=== PATIENT | female | born 1930 | race Caucasian/White ===

== ENCOUNTER 2017-11-06 22:50 | Emergency (ER) | payer MEDICARE, OTHER ==
[2017-11-06 23:01] VITALS: BP 144/70; PULSE 68; RESP 20; TEMP 99.2; O2SAT 91
--- NOTE | 2017-11-06 23:12 | PD ---
HPI Chief Complaint: COUGH Time Seen by Provider: 23:03 Travel History International Travel<30 days: No Contact w/Intl Traveler<30days: No Traveled to known affect area: No History of Present Illness HPI Patient comes in complaining of cough dry, generalized weakness, malaise, subjective fevers at home. Patient was diagnosed with flu and placed on Tamiflu this was around early October. Since then she could continue to have the same symptoms and although she has an appointment tomorrow for her primary care the family was concerned that she may be developing a pneumonia or worse another pulmonary embolus. Patient has already a previous history of pulmonary embolus and placed on Eliquis. Past medical history significant for hypertension diabetes hyperlipidemia PE PFSH Social History Tobacco Use: No Allergies-Medications (Allergen,Severity, Reaction): Coded Allergies: iodine (Unverified Adverse Reaction, Severe, Swelling, 11/06/17) Reported Meds & Prescriptions Reported Meds & Active Scripts Active Cipro (Ciprofloxacin HCl) 500 Mg Tab 500 Mg PO BID 7 Days Medrol Dosepak (Methylprednisolone) 4 Mg Dspk 4 Mg PO DIRECTED Per Pharmacist direction Proventil Hfa 6.7 GM Inh (Albuterol Sulfate) 90 Mcg/Act Aer 2 Puff INH Q4-6H PRN Reported Anoro Ellipta Inh (Umeclidinium/Vilanterol) 62.5-25 Mcg/Act Aero 1 Puff INH DAILY Tramadol (Tramadol HCl) 50 Mg Tab 50 Mg PO BID PRN Sennosides 8.6 Mg Tab 8.6 Mg PO BID Prednisone 5 Mg Tab 5 Mg PO DAILY Pravastatin 20 Mg Tab 20 Mg PO DAILY Pantoprazole (Pantoprazole Sodium) 40 Mg Tab 40 Mg PO DAILY Metoprolol Tartrate 50 Mg Tab 50 Mg PO BID Methotrexate 2.5 Mg Tab 2.5 Mg PO Q7D Glipizide 5 Mg Tab 5 Mg PO DAILY Take 30 minutes before a meal Fluticasone-Salmeterol Inh 232-14 Mcg Inh 1 Puff INH BID Diclo Gel Topical (Diclofenac Sodium) 1% Gel 1 Applic TOPICAL QID Coenzyme Q-10 (Ubidecarenone) 50 Mg Capsule 100 Vitamin D3 (Cholecalciferol) 3,000 Unit Tab 3,000 Units PO DAILY Eliquis (Apixaban) 5 Mg Tab 5 Mg PO BID Amlodipine (Amlodipine Besylate) 5 Mg Tab 5 Mg PO DAILY Review of Systems General / Constitutional: Positive: Fever Eyes: No: Visual changes HENT: No: Headaches Cardiovascular: No: Chest Pain or Discomfort Respiratory: Positive: Cough, Shortness of Breath Gastrointestinal: No: Abdominal Pain Genitourinary: No: Dysuria Musculoskeletal: No: Pain Skin: No Rash Neurologic: No: Weakness Psychiatric: No: Depression Endocrine: No: Polydipsia Hematologic/Lymphatic: No: Easy Bruising Physical Exam Narrative GENERAL: SKIN: Warm and dry. HEAD: Atraumatic. Normocephalic. EYES: Pupils equal and round. No scleral icterus. No injection or drainage. ENT: No nasal bleeding or discharge. Mucous membranes pink and moist. NECK: Trachea midline. No JVD. CARDIOVASCULAR: Regular rate and rhythm. RESPIRATORY: No accessory muscle use. Breath sounds equal bilaterally. Bilateral rhonchi mild wheezing but with good tidal volume GASTROINTESTINAL: Abdomen soft, non-tender, nondistended. Hepatic and splenic margins not palpable. MUSCULOSKELETAL: Extremities without clubbing, cyanosis, or edema. No obvious deformities. NEUROLOGICAL: Awake and alert. No obvious cranial nerve deficits. Motor grossly within normal limits. Five out of 5 muscle strength in the arms and legs. Normal speech. PSYCHIATRIC: Appropriate mood and affect; insight and judgment normal. Data Data Last Documented VS Vital Signs Date Time Temp Pulse Resp B/P (MAP) Pulse Ox O2 Delivery O2 Flow Rate FiO2 11/07/17 01:21 11/07/17 01:05 63 18 97 Nasal Cannula 2.00 11/06/17 23:01 99.2 Orders Orders Electrocardiogram (11/06/17 23:12) Complete Blood Count With Diff (11/06/17 23:12) Comprehensive Metabolic Panel (11/06/17 23:12) Ckmb (Isoenzyme) Profile (11/06/17 23:12) Troponin I (11/06/17 23:12) B-Type Natriuretic Peptide (11/06/17 23:12) Prothrombin Time / Inr (Pt) (11/06/17 23:12) Act Partial Throm Time (Ptt) (11/06/17 23:12) Arterial Blood Gas (Abg) (11/06/17 23:12) Blood Culture (11/06/17 23:12) Lipase (11/06/17 23:12) Urinalysis - C+S If Indicated (11/06/17 23:12) Cath For Specimen (11/06/17 23:12) Thyroid Stimulating Hormone (11/06/17 23:12) Influenzae A/B Antigen (11/06/17 23:12) Chest, Single Ap (11/06/17 23:12) Iv Access Insert/Monitor (11/06/17 23:12) Ecg Monitoring (11/06/17 23:12) Oximetry (11/06/17 23:12) Lactic Acid Sepsis Protocol (11/06/17 23:12) Levofloxacin 500 Mg Premix Inj (Levaquin (11/07/17 00:15) Ed Discharge Order (11/07/17 00:49) Labs Laboratory Tests Test 11/06/17 23:15 11/06/17 23:28 11/06/17 23:45 White Blood Count 7.3 TH/MM3 Red Blood Count 4.01 MIL/MM3 Hemoglobin 12.9 GM/DL Hematocrit 38.1 % Mean Corpuscular Volume 95.2 FL Mean Corpuscular Hemoglobin 32.3 PG Mean Corpuscular Hemoglobin Concent 33.9 % Red Cell Distribution Width 17.6 % Platelet Count 181 TH/MM3 Mean Platelet Volume 7.6 FL Neutrophils (%) (Auto) 59.2 % Lymphocytes (%) (Auto) 20.7 % Monocytes (%) (Auto) 18.6 % Eosinophils (%) (Auto) 1.0 % Basophils (%) (Auto) 0.5 % Neutrophils # (Auto) 4.3 TH/MM3 Lymphocytes # (Auto) 1.5 TH/MM3 Monocytes # (Auto) 1.4 TH/MM3 Eosinophils # (Auto) 0.1 TH/MM3 Basophils # (Auto) 0.0 TH/MM3 CBC Comment DIFF FINAL Differential Comment Prothrombin Time 11.8 SEC Prothromb Time International Ratio 1.2 RATIO Activated Partial Thromboplast Time 29.1 SEC Blood Urea Nitrogen 16 MG/DL Creatinine 1.10 MG/DL Random Glucose 113 MG/DL Total Protein 6.3 GM/DL Albumin 3.2 GM/DL Calcium Level 8.9 MG/DL Alkaline Phosphatase 54 U/L Aspartate Amino Transf (AST/SGOT) 20 U/L Alanine Aminotransferase (ALT/SGPT) 21 U/L Total Bilirubin 0.4 MG/DL Sodium Level 135 MEQ/L Potassium Level 3.8 MEQ/L Chloride Level 99 MEQ/L Carbon Dioxide Level 27.2 MEQ/L Anion Gap 9 MEQ/L Estimat Glomerular Filtration Rate 47 ML/MIN Lactic Acid Level 1.0 mmol/L Total Creatine Kinase 22 U/L Troponin I LESS THAN 0.02 NG/ML B-Type Natriuretic Peptide 34 PG/ML Lipase 68 U/L Thyroid Stimulating Hormone 3rd Gen 0.851 uIU/ML Blood Gas Puncture Site RT BRACHIAL Blood Gas Patient Temperature 98.6 Blood Gas HCO3 24 mmol/L Blood Gas Base Excess 0.8 mmol/L Blood Gas Oxygen Saturation 95 % Arterial Blood pH 7.45 Arterial Blood Partial Pressure CO2 36 mmHg Arterial Blood Partial Pressure O2 87 mmHG Arterial Blood Oxygen Content 16.3 Vol % Arterial Blood Carboxyhemoglobin 0.9 % Arterial Blood Methemoglobin 1.0 % Blood Gas Hemoglobin 12.2 G/DL Oxygen Delivery Device NASAL CANNULA Blood Gas Liter Flow 3 L/M Urine Color YELLOW Urine Turbidity CLEAR Urine pH 5.5 Urine Specific Huger 1.022 Urine Protein NEG mg/dL Urine Glucose (UA) NEG mg/dL Urine Ketones NEG mg/dL Urine Occult Blood NEG Urine Nitrite NEG Urine Bilirubin NEG Urine Urobilinogen LESS THAN 2.0 MG/DL Urine Leukocyte Esterase NEG Urine RBC LESS THAN 1 /hpf Urine WBC 1 /hpf Urine Squamous Epithelial Cells 1 /hpf Urine Hyaline Casts 1 /lpf Microscopic Urinalysis Comment CULT NOT INDICATED MDM Medical Decision Making Medical Screen Exam Complete: Yes Emergency Medical Condition: Yes Medical Record Reviewed: Yes Differential Diagnosis PNA V PLEURAL EFFUSION V PULM EDEMA V STEMI Narrative Course Patient CBC shows no evidence of any leukocytosis and anemia or thrombocytopenia there is also no shift. Coagulation profile is within normal limits. UA shows no evidence of UTI. Chemistry shows a normal TSH, negative troponin, normal beta natruretic peptide, normal BUN and creatinine normal electrolytes normal glucose Diagnosis Primary Impression: Early pneumonia with bronchospasm Patient Instructions: Bronchospasm (ED), Community Acquired Pneumonia (ED), General Instructions Scripts Ciprofloxacin (Cipro) 500 Mg Tab 500 MG PO BID for Infection for 7 Days, #14 TAB 0 Refills Prov: Reji Gonzalez MD 11/07/17 Methylprednisolone Dosepak (Medrol Dosepak) 4 Mg Dspk 4 MG PO DIRECTED, #1 DSPK 0 Refills Per Pharmacist direction Prov: Reji Gonzalez MD 11/07/17 Albuterol 6.7 GM Inh (Proventil Hfa 6.7 GM Inh) 90 Mcg/Act Aer 2 PUFF INH Q4-6H Y for SHORTNESS OF BREATH, #1 INHALER 0 Refills Prov: Reji Gonzalez MD 11/07/17 Disposition: 01 DISCHARGE HOME Condition: Stable Reji Gonzalez MD Nov 06, 2017 23:12
[2017-11-06 23:49] LABS: AUTOMATED NEUTROPHIL # 4.3 TH/MM3 (1.8-7.7); BASOPHIL % 0.5 % (0.0-2.0); EOSINOPHIL # 0.1 TH/MM3 (0-0.4); HEMATOCRIT 38.1 % (35.0-46.0); HEMOGLOBIN 12.9 GM/DL (11.6-15.3); LYMPH % 20.7 % (9.0-44.0); LYMPHOCYTE # 1.5 TH/MM3 (1.0-4.8); MEAN CELL VOLUME 95.2 FL (80.0-100.0); MEAN CORPUSCULAR HEMOGLOBIN 32.3 PG (27.0-34.0); MEAN CORPUSCULAR HGB CONC 33.9 % (32.0-36.0); MEAN PLATELET VOLUME 7.6 FL (7.0-11.0); MONO % 18.6 % (0.0-8.0); MONOCYTE # 1.4 TH/MM3 (0-0.9); NEUT % 59.2 % (16.0-70.0); PLATELET COUNT 181 TH/MM3 (150-450); RED BLOOD COUNT 4.01 MIL/MM3 (4.00-5.30); RED CELL DISTRIBUTION WIDTH 17.6 % (11.6-17.2); WHITE BLOOD COUNT 7.3 TH/MM3 (4.0-11.0)
[2017-11-06 23:55] LABS: INTERNATIONAL NORMALIZED RATIO 1.2 RATIO; PROTHROMBIN TIME - PATIENT 11.8 SEC (9.8-11.6)
--- NOTE | 2017-11-06 23:58 | RADRPT ---
EXAM DATE/TIME: 11/06/2017 23:36 [facility] COMPARISON: No previous studies available for comparison. INDICATIONS : Cough, fever, and weakness. MEDICAL HISTORY : Pulmonary embolus. SURGICAL HISTORY : None. ENCOUNTER: Initial ACUITY: 4 - 6 days PAIN SCORE: 0/10 LOCATION: Bilateral chest FINDINGS: Cardiomegaly and degenerative changes of the spine. Patchy basilar airspace disease versus atelectasi s. No effusion. CONCLUSION: Basilar parenchymal opacities suspect for developing airspace disease versus atelectasis. Eber Rhodes MD on November 06, 2017 at 23:57 Board Certified Radiologist. This report was verified electronically.
[2017-11-07] LABS: ALBUMIN 3.2 GM/DL (3.4-5.0); ALT (GPT) 21 U/L (10-53); AST (GOT) 20 U/L (15-37); BICARBONATE 27.2 MEQ/L (21.0-32.0); BLOOD UREA NITROGEN 16 MG/DL (7-18); CALCIUM 8.9 MG/DL (8.5-10.1); CHLORIDE 99 MEQ/L (98-107); GLOMERULAR FILTRATION RATE 47 ML/MIN (>89); GLUCOSE,RANDOM 113 MG/DL (74-106); SODIUM (NA) 135 MEQ/L (136-145)
[2017-11-07 00:01] LABS: BILIRUBIN, URINE NEG (NEG); BLOOD, URINE NEG (NEG); GLUCOSE,URINE NEG (NEG); HYALINE CAST, URINE 1 /lpf (RARE); KETONE, URINE NEG (NEG); NITRITE,URINE NEG (NEG); PH, URINE 5.5 (5.0-8.5); SQUAMOUS EPITHELIAL CELL URINE 1 /hpf (0-5); URINE COLOR YELLOW (YELLW/STRAW); URINE LEUKOCYTE ESTERASE NEG (NEG)
[2017-11-07 00:10] LABS: ALKALINE PHOSPHATASE 54 U/L (45-117); TOTAL BILIRUBIN ADULT 0.4 MG/DL (0.2-1.0); TOTAL PROTEIN 6.3 GM/DL (6.4-8.2); TROPONIN I LESS THAN 0.02 NG/ML (0.02-0.05)
[2017-11-07] MEDS ORDERED: LEVOFLOXACIN 500 MG PREMIX INJ 100 ML IV ONE (00:15)
[2017-11-07] MEDS ORDERED: ALBU6.7H INH (00:26)
[2017-11-07] MEDS ORDERED: CIPR-9 PO (00:26)
[2017-11-07] MEDS ORDERED: MEDR4PAK PO (00:26)
[2017-11-07] MEDS ORDERED: METH2.5T PO (00:37)
[2017-11-07] MEDS ORDERED: VITA3000 PO (00:37)
[2017-11-07] MEDS ORDERED: METO50TA PO (00:37)
[2017-11-07] MEDS ORDERED: AMLO5TAB2 PO (00:37)
[2017-11-07] MEDS ORDERED: PANT40TA3 PO (00:37)
[2017-11-07] MEDS ORDERED: FLUT1AER5 INH (00:37)
[2017-11-07] MEDS ORDERED: PRED5TAB PO (00:37)
[2017-11-07] MEDS ORDERED: UBID50CA4 (00:37)
[2017-11-07] MEDS ORDERED: TRAM50TA PO (00:37)
[2017-11-07] MEDS ORDERED: SENN8.6T81 PO (00:37)
[2017-11-07] MEDS ORDERED: PRAV20TA2 PO (00:37)
[2017-11-07] MEDS ORDERED: APIX5TAB PO (00:37)
[2017-11-07] MEDS ORDERED: DICL1KIT5 TOPICAL (00:37)
[2017-11-07] MEDS ORDERED: GLIP5TAB8 PO (00:37)
[2017-11-07] MEDS ORDERED: UMEC1AER INH (00:37)
[2017-11-07 01:05] VITALS: BP 137/62; PULSE 63; RESP 18; O2SAT 97
--- NOTE | 2017-11-07 14:34 | EKG ---
Date Performed: 11/06/2017 Time Performed: 23:21:57 PTAGE: 87 years EKG: Sinus rhythm LEFT ANTERIOR FASCICULAR BLOCK VOLTAGE CRITERIA FOR LVH ABNORMAL ECG NO PREVIOUS TRACING DOCTOR: Roby Torres Interpretating Date/Time 11/07/2017 14:29:43
== END 2017-11-07 01:20 | disposition home or self-care (01) ==
LOC: NEPC 22:50
DX: J18.9 Pneumonia, unspecified organism (principal); I44.4 Left anterior fascicular block; R94.31 Abnormal electrocardiogram [ECG] [EKG]; E11.9 Type 2 diabetes mellitus without complications; I10 Essential (primary) hypertension; E78.5 Hyperlipidemia, unspecified; Z86.711 Personal history of pulmonary embolism; Z79.899 Other long term (current) drug therapy; Z79.01 Long term (current) use of anticoagulants
CPT/HCPCS: 36600; 71045; 80053; 81001; 82550; 82805; 83605; 83690; 83880; 84443; 84484; 85025; 85610; 85730; 87040; 87804; 93005; 96365; 99285; J1956